=== PATIENT | female | born 1970 | race Caucasian/White ===

== ENCOUNTER 2020-04-22 12:29 | Emergency (ER) | payer BC, SELFPAY ==
[2020-04-22 12:36] VITALS: BP 150/91; PULSE 113; RESP 20; TEMP 36.4; O2SAT 100; BMI 32.9
--- NOTE | 2020-04-22 12:39 | W.ED.ALLEREA ---
HPI - Allergic Reaction General: Chief complaint: Allergic Reaction Stated complaint: ALLERGIC RXN Time Seen by Provider: 04/22/20 12:39 Source: patient Mode of arrival: ambulatory Limitations: no limitations History of Present Illness: HPI narrative: Patient is a diabetic and was diagnosed with some high cholesterol. Patient took a dose of niacin about 1 hour prior to arrival to the ER and started having redness and breaking out. Patient taken some Benadryl with minimal to no relief. Patient appears flushed. Patient denies any difficulty breathing or any itching. Review of Systems General: Reports: 10 or more systems reviewed and unremarkable except in HPI and below Skin/Breast: Reports: erythema Physical Exam Const: COMMON NORMALS: no acute distress and patient oriented x3 GENERAL APPEARANCE: cooperative HENMT: COMMON NORMALS: normocephalic and Normal external nose present HEAD & SCALP: normal to inspection and normocephalic NOSE: Normal external nose present MOUTH: Normal oral and palatal mucosa present THROAT: posterior oropharynx normal Eye: GENERAL EYE: appearance normal, both eyes and all related structures Neck/C-Spine: COMMON NORMALS: full ROM Lymph: LYMPHATIC: no lymphadenopathy noted Chest: COMMONS NORMALS: normal inspection of the chest Resp: COMMON NORMALS: normal respiratory effort EFFORT & INSPECTION: Yes able to speak in complete sentences Cardio: COMMON NORMALS: regular rate and regular rhythm RATE: regular rate RHYTHM: regular rhythm GI: COMMON NORMALS: non-tender Back/Pelvis: COMMON NORMALS: thoracic and lumbar spine normal to inspection Extremity: COMMON NORMALS: normal to inspection Neuro: COMMON NORMALS: patient oriented x3 and moves all extremities Psych: COMMON NORMALS: mental status grossly normal and cooperative Skin: COMMON NORMALS: no rashes or lesions noted GENERAL SKIN EXAM: no rashes or lesions noted Course Vital Signs: Vital signs: Vital Signs Temperature 97.5 F L 04/22/20 12:36 Pulse Rate 113 H 04/22/20 12:36 Respiratory Rate 20 H 04/22/20 12:36 Blood Pressure 150/91 04/22/20 12:36 Pulse Oximetry 100 04/22/20 12:57 MDM - Allergic Reaction MDM Narrative: Medical decision making narrative: Patient presents with generalized redness and mild swelling to the extremities. Patient denies any chest pain, difficulty breathing, or difficulty swallowing. Patient admitted that she had taken some niacin about an hour before the reaction started. Exam was normal without any signs of significant illness or distress. Differential diagnosis includes anaphylaxis, nicotinic acid reaction, flushing. Patient was given 650 mg of aspirin with some Zofran with good results for decrease in flushing. Patient's just had a niacin flush reaction reviewed this with her with recommendations for follow-up and further treatment. Patient reported understanding agreed to plan. Discharge Plan Discharge Patient Disposition: Home Clinical Impression: Adverse reaction to niacin Qualifiers: Encounter type: initial encounter Qualified Code(s): T46.7X5A - Adverse effect of peripheral vasodilators, initial encounter Condition: Stable Discharge Orders: Discharge ED (Routine); Ordered 04/22/20 Ordered By: Imer Mitchell Discharge Diet: Usual diet Discharge Activity: Increase activity as tolerated Patient Instructions: Opioid Safety Activity Restrictions/Additional Instructions: Drink plenty of water. For next 24 hours you may avoid anything that would cause increased vasodilation such as hot spicy foods, or alcohol. Follow-up with primary care for further discussion about options for lowering cholesterol. Return to the emergency department for new concerns. Coding Level of Care Code ED [employer] for Rolf Juárez Exam Comprehensive
[2020-04-22] MEDS: ondansetron 4 MG Tablet PO (12:54)
[2020-04-22] MEDS: aspirin 325 mg Tablet 650 MG PO (12:54)
[2020-04-22 12:57] VITALS: O2SAT 100
[2020-04-22 13:47] VITALS: BP 115/69; PULSE 72; RESP 16; O2SAT 100
== END 2020-04-22 13:47 | disposition home or self-care (01) ==
PROVIDERS: Emergency Provider Nurse Practitioner Family
DX: T88.7XXA Unspecified adverse effect of drug or medicament, initial encounter (principal); T46.7X5A Adverse effect of peripheral vasodilators, initial encounter
CPT/HCPCS: 99283; Q0162

== ENCOUNTER → 2020-11-28 08:52 | Outpatient (BNVA) | payer BC, SELFPAY | PROVIDERS: Visit Provider Nurse Practitioner Family | DX: Z20.822 Contact with and (suspected) exposure to COVID-19 (principal) | CPT/HCPCS: 87426 ==

== ENCOUNTER 2023-09-29 16:56 | Outpatient (CLI) | payer BC, SELFPAY ==
--- NOTE | 2023-09-29 17:07 | XRR_ITS ---
PROCEDURE INFORMATION: Exam: XR Lumbosacral Spine Exam date and time: 09/29/2023 5:19 PM Age: 53 years old Clinical indication: Low back pain; Patient HX: Swelling and pain in the right arm/hip/leg for the last month. Pain in the lower back as well. HX of colon cancer; Additional info: Low back pain, acute TECHNIQUE: Imaging protocol: Radiologic exam of the lumbosacral spine. Views: 6 or more views. Including flexion and extension views. COMPARISON: CR XR hip RT 2-3V wo/w pel* [id number] 09/29/2023 5:19 PM FINDINGS: Bones/joints: There are 5 [id number] lumbar vertebral bodies. There is normal alignment. No subluxations are identified. No fractures are noted. There are small anterior osteophytes at L2, L3 and L4. There are degenerative changes involving the lower lumbar facets. SI joints are normal. There is trace anterolisthesis of L4 in relation to L5 on the flexion view. Otherwise, alignment is normal on the flexion and extension views. Soft tissues: Unremarkable. XR/XR lumbar spine 6V w f/e [id number] IMPRESSION: 1. Mild spondylosis including the lower lumbar facets. 2. Trace instability at L4-L5.
--- NOTE | 2023-09-29 17:07 | XRR_ITS ---
PROCEDURE INFORMATION: Exam: XR Right Knee Exam date and time: 09/29/2023 5:19 PM Age: 53 years old Clinical indication: Knee; Patient HX: Swelling and pain in the right arm/hip/leg for the last month. Pain in the lower back as well. ; Additional info: Pain in right knee TECHNIQUE: Imaging protocol: Radiologic exam of the right knee. Views: 3 views. COMPARISON: No relevant prior studies available. FINDINGS: Bones/joints: No fracture or dislocation is appreciated. There is slight joint space narrowing medially with small osteophytes. There are tiny patellar and tibial spine osteophytes as well. Bony mineralization is normal. There is no evidence of a significant joint effusion. Soft tissues: Normal. XR/XR knee RT 4V [id number] IMPRESSION: 1. Mild osteoarthritis.
--- NOTE | 2023-09-29 17:07 | XRR_ITS ---
PROCEDURE INFORMATION: Exam: XR Right Hip Exam date and time: 09/29/2023 5:19 PM Age: 53 years old Clinical indication: Hip pain; Right hip; Patient HX: Swelling and pain in the right arm/hip/leg for the last month. Pain in the lower back as well. HX of colon cancer; Additional info: Pain in right hip TECHNIQUE: Imaging protocol: Radiologic exam of the right hip. Views: 1 view hip with pelvis when performed. COMPARISON: CR XR lumbar spine 6V w f/e [id number] 09/29/2023 5:19 PM FINDINGS: Bones/joints: Unremarkable. No acute fracture. Soft tissues: Surgical suture is seen within the pelvis. No acute appearing soft tissue abnormalities are noted. XR/XR hip RT 2-3V wo/w pel* [id number] IMPRESSION: No acute findings.
== END 2023-09-29 16:57 | disposition home or self-care (01) ==
PROVIDERS: Visit Provider Nurse Practitioner Family
DX: M25.551 Pain in right hip (principal); M47.816 Spondylosis without myelopathy or radiculopathy, lumbar region; M17.11 Unilateral primary osteoarthritis, right knee
CPT/HCPCS: 72114; 73502; 73564

== ENCOUNTER → 2023-10-22 13:58 | Outpatient (BNVA) | payer BC, SELFPAY | PROVIDERS: Visit Provider Orthopaedic Surgery | DX: M54.50 Low back pain, unspecified (principal) | CPT/HCPCS: 72110 ==

== ENCOUNTER 2023-11-04 13:29 | Outpatient (RCR) | payer BC, SELFPAY | END 2023-11-30 23:59 | disposition home or self-care (01) | LOC: SPT 13:29 | PROVIDERS: PCP Family Medicine; Visit Provider Orthopaedic Surgery | DX: M54.50 Low back pain, unspecified (principal) | CPT/HCPCS: 97110; 97161 ==

== ENCOUNTER 2023-12-15 07:15 | Outpatient (CLI) | payer BC, SELFPAY ==
--- NOTE | 2023-12-15 07:15 | MR_ITS ---
WS: [id number] MRI LUMBAR SPINE NONCONTRAST TECHNIQUE: Sagittal T1, T2 and STIR imaging. Axial T1 and T2 imaging. CLINICAL INFORMATION: back pain COMPARISON: None. FINDINGS: Mild lumbar curve. No acute compression. No high-grade central canal stenosis. L1-L2: Mild facet arthropathy. Spinal canal and foramen are patent. L2-L3: Mild annular bulging. Mild facet arthropathy. Tiny LEFT foraminal protrusion with mild LEFT pr oximal foraminal narrowing. L3-L4: Mild annular bulging. Mild facet arthropathy. Tiny RIGHT foraminal protrusion slightly contact s the exiting RIGHT L3 nerve root. LEFT foramen is patent. L4-L5: Mild annular bulging. Mild facet arthropathy. Mild RIGHT foraminal narrowing. Spinal canal is patent. L5-S1: Mild annular bulging. Mild facet arthropathy. Spinal canal and foramen are patent. Visualized pelvic bony structures: Normal. Paravertebral soft tissues: Normal. Small disc protrusions in the cervical spine at C5-C6 and C6-C7 seen on the it analyst imaging. MR/MR lumbar spine wo con* [id number] IMPRESSION: 1. Mild lumbar curve. No acute compression. No high-grade central canal stenos is. 2. Tin foraminal protrusions at LEFT L2-3 and RIGHT L3-4 with slight encroachm ent on the exiting LEFT L2 and RIGHT L3 nerve roots respectively. 3. Mild RIGHT L4-5 foraminal narrowing. 4. Small disc protrusions in the cervical spine on the it analyst imaging at C5-C6 and C6-C7.
== END 2023-12-15 07:23 | disposition home or self-care (01) ==
PROVIDERS: PCP Family Medicine; Visit Provider Orthopaedic Surgery
DX: M54.9 Dorsalgia, unspecified (principal)
CPT/HCPCS: 72148

== ENCOUNTER 2023-12-29 09:00 | Outpatient (RCR) | payer BC, SELFPAY | END 2023-12-31 23:59 | disposition home or self-care (01) | LOC: SPT 09:00 | PROVIDERS: Visit Provider Orthopaedic Surgery | DX: M54.50 Low back pain, unspecified (principal); G89.29 Other chronic pain | CPT/HCPCS: 97110; 97161 ==

== ENCOUNTER 2024-01-05 12:25 | Outpatient (RCR) | payer BC, SELFPAY | END 2024-01-30 23:59 | disposition home or self-care (01) | LOC: SPT 12:25 | PROVIDERS: Visit Provider Orthopaedic Surgery | DX: M54.50 Low back pain, unspecified (principal); G89.29 Other chronic pain | CPT/HCPCS: 97110 ==

== ENCOUNTER 2024-01-31 06:00 | Outpatient (RCR) | payer BC, SELFPAY | END 2024-03-01 23:59 | disposition home or self-care (01) | LOC: SPT 06:00 | PROVIDERS: Visit Provider Orthopaedic Surgery | DX: M54.50 Low back pain, unspecified (principal); G89.29 Other chronic pain | CPT/HCPCS: 97110 ==

== ENCOUNTER → 2024-10-31 11:36 | Outpatient (BNVA) | payer BC, SELFPAY | PROVIDERS: Visit Provider Registered Nurse Neonatal Intensive Care | DX: R39.9 Unspecified symptoms and signs involving the genitourinary system (principal) | CPT/HCPCS: 81000; 87086 ==

== ENCOUNTER → 2025-02-07 16:19 | Outpatient (BNVA) | payer BC, SELFPAY | PROVIDERS: Visit Provider Family Medicine Adult Medicine | DX: R39.89 Other symptoms and signs involving the genitourinary system (principal) | CPT/HCPCS: 81000 ==